=== PATIENT | female | born 1985 | race Caucasian/White ===

== ENCOUNTER 2018-06-18 13:59 | Emergency (ER) | payer OTHER ==
[2018-06-18] MEDS ORDERED: SODIUM CHLORIDE 0.9% 1,000 ML IV STA (14:54)
[2018-06-18] MEDS ORDERED: diphenhydrAMINE 50 MG/ML 1 ML VIAL IVP STA (15:05)
[2018-06-18] MEDS ORDERED: KETOROLAC 30 MG/ML 1 ML VIAL IVP STA (15:05)
[2018-06-18] MEDS ORDERED: ONDANSETRON 4 MG/2 ML VIAL IVP STA (15:05)
--- NOTE | 2018-06-18 15:08 | ED ---
General Adult HPI - General Chief complaint: Headache Stated complaint: Hypertension, near syncope Time Seen by Provider: 06/18/18 14:54 Source: patient Mode of arrival: ambulatory Limitations: no limitations - History of Present Illness Initial comments: Dictation was produced using [employer] dictation software. please excuse any grammatical, word or spelling errors. Chief Complaint: 32-year-old female no significant past medical history presents with headache. History of Present Illness: Patient is a 32-year-old female presents with headache. Patient reports that she's had these symptoms on waking today. Patient is a history of these types of headaches. Patient states she's been very stressed out recently because she has been having personal stress stemming from being deported from [place] and having intense arguments with her lesbian . Patient has a normal neurologic deficits. He has not sought treatment or evaluation from neurologist past release frequent migraine headaches. Denies any fever, chills or night sweats. She localizes the pain to her upper neck radiating to the back of her head. She describes it as pounding with photophobia. The ROS documented in this emergency department record has been reviewed and confirmed by me. Those systems with pertinent positive or negative responses have been documented in the HPI. All other systems are other negative and/or noncontributory. PHYSICAL EXAM: General Impression: Alert and oriented x3, not in acute distress HEENT: Normocephalic atraumatic, extra-ocular movements intact, pupils equal and reactive to light bilaterally, mucous membranes moist. Cardiovascular: Heart regular rate and rhythm, S1&S2 audible, no murmurs, rubs or gallops Chest: Lungs clear to auscultation bilaterally, no rhonchi, no wheeze, no rales Abdomen: Bowel sounds present, abdomen soft, non-tender, non-distended, no organomegaly Musculoskeletal: Pulses present and equal in all extremities, no peripheral edema Motor: no focal deficits noted Neurological: CN II-XII grossly intact, no focal motor or sensory deficits noted Skin: Intact with no visualized rashes Psych: Normal affect and mood ED course: 32-year-old female presents with chief complaint of headache. As upon arrival are within acceptable limits. No neurologic deficits. Patient treated with intravenous fluids and headache cocktail. Patient reevaluated after headache cocktail and intravenous fluids with dramatic improvement of symptoms. Patient clear for discharge. She is to follow-up with primary care physician. Return parameters discussed. Clinical presentation consistent with severe emergent intracranial process. Patient's symptoms likely secondary to migraine or benign primary headache given HPI. No clinical suspicion of pseudotumor cerebri, intracranial bleed, aneurysm or intracranial mass. - Related Data Home Medications Medication Instructions Recorded Confirmed No Known Home Medications 06/18/18 06/18/18 Allergies Allergy/AdvReac Type Severity Reaction Status Date / Time No Known Allergies Allergy Verified 06/18/18 15:19 Review of Systems ROS Statement: Those systems with pertinent positive or pertinent negative responses have been documented in the HPI. ROS Other: All systems not noted in ROS Statement are negative. Past Medical History Past Medical History: Hypertension History of Any Multi-Drug Resistant Organisms: None Reported Past Surgical History: Orthopedic Surgery, Tonsillectomy Past Psychological History: Depression Smoking Status: Current every day smoker Past Alcohol Use History: None Reported Past Drug Use History: Marijuana General Exam Limitations: no limitations Course Vital Signs 06/18/18 14:06 Temperature 98.4 F Pulse Rate 109 H Respiratory 20 Rate Blood Pressure 146/98 O2 Sat by Pulse 100 Oximetry Disposition Clinical Impression: Headache Disposition: HOME SELF-CARE Condition: Good Instructions (If sedation given, give patient instructions): Acute Headache (ED) Is patient prescribed a controlled substance at d/c from ED?: No Referrals: None,Stated [Primary Care Provider] - 1-2 days Time of Disposition: 16:32
[2018-06-18 17:29] VITALS: BP 149/90; PULSE 74; RESP 18; TEMP 98.4
== END 2018-06-18 17:28 | disposition home or self-care (01) ==
LOC: EC 13:59
DX: R51 Headache (principal); M54.2 Cervicalgia; H53.149 Visual discomfort, unspecified; F17.200 Nicotine dependence, unspecified, uncomplicated; Z63.79 Other stressful life events affecting family and household
CPT/HCPCS: 99283; 96374; 96375 ×2; 96361; J1200; J2405; J1885